=== PATIENT | male | born 1955 | race Caucasian/White ===

== ENCOUNTER 2017-01-02 23:09 | Emergency (ER) | payer MEDICARE ==
[2017-01-03 00:13] LABS: BASOPHILS 1.1 % (0-2); EOSINOPHILS 4.7 % (0-7); HEMATOCRIT 40.2 % (42.0-54.0); HEMOGLOBIN 13.3 g/dL (13.5-17.5); IMMATURE GRANULOCYTES 0.2 % (0-5); LYMPHOCYTES 33.2 % (15-50); MCHC 33.1 g/dL (31.0-37.0); MCV 93.7 fL (80.0-100.0); MEAN PLATELET VOLUME 9.7 fL (7.4-10.4); MONOCYTES 12.1 % (2-11); NEUTROPHILS 48.7 % (40-80); PLATELET COUNT 414 10x3/uL (130-400); RBC 4.29 10x6/uL (4.20-6.10); RDW 14.4 % (11.5-14.5); WBC 13.1 10x3/uL (4.8-10.8)
[2017-01-03 00:27] LABS: APPEARANCE CLEAR (CLEAR); COLOR YELLOW (YELLOW); GLUCOSE NEGATIVE (NEGATIVE); KETONE NEGATIVE (NEGATIVE); LEUKOCYTE ESTERASE NEGATIVE (NEGATIVE); NITRITE NEGATIVE (NEGATIVE); PROTEIN NEGATIVE (NEGATIVE); SPECIFIC GRAVITY 1.015 (1.005-1.020)
[2017-01-03 00:28] LABS: BILIRUBIN NEGATIVE (NEGATIVE); UROBILINOGEN NORMAL (NORMAL)
[2017-01-03 00:32] LABS: ALBUMIN 3.2 g/dL (3.4-5.0); ALKALINE PHOSPHATASE 107 U/L (46-116); ALT (SGPT) 25 U/L (10-68); BILIRUBIN - TOTAL 0.26 mg/dL (0.2-1.3); CALC OSMOLALITY 277 mosm/kg (275-300); CALCIUM 9.1 mg/dL (8.5-10.1); CARBON DIOXIDE 25.4 mmol/L (21.0-32.0); CHLORIDE - SERUM 104 mmol/L (98-107); GLUCOSE 107 mg/dL (74-106); POTASSIUM - SERUM 4.3 mmol/L (3.5-5.1); PROTEIN - SERUM 7.7 g/dL (6.4-8.2); SODIUM 138 mmol/L (136-145); UREA NITROGEN 19 mg/dL (7-18); eGFR NON AFRICAN AMERICAN 81 mL/min (90-120)
== END 2017-01-03 02:38 | disposition home or self-care (01) ==
LOC: D.ER 23:09
PROVIDERS: Nurse Practitioner Family
DX: S50.01XA Contusion of right elbow, initial encounter (principal); W01.0XXA Fall on same level from slipping, tripping and stumbling without subsequent striking against object, initial encounter; Y93.89 Activity, other specified; Y92.019 Unspecified place in single-family (private) house as the place of occurrence of the external cause; M25.521 Pain in right elbow; F17.200 Nicotine dependence, unspecified, uncomplicated

== ENCOUNTER 2017-05-14 07:40 | Inpatient (IN) | payer MEDICARE, OTHER ==
[~2017-05-14] VITALS: Ht 182.9 cm; Wt 72.0 kg
[2017-05-14 08:05] LABS: BASOPHILS 1.3 % (0-2); EOSINOPHILS 3.2 % (0-7); HEMATOCRIT 41.9 % (42.0-54.0); HEMOGLOBIN 13.9 g/dL (13.5-17.5); IMMATURE GRANULOCYTES 0.2 % (0-5); LYMPHOCYTES 34.4 % (15-50); MCH 30.5 pg (26.0-34.0); MCHC 33.2 g/dL (31.0-37.0); MCV 91.9 fL (80.0-100.0); MEAN PLATELET VOLUME 9.7 fL (7.4-10.4); MONOCYTES 11.6 % (2-11); NEUTROPHILS 49.3 % (40-80); PLATELET COUNT 492 10x3/uL (130-400); RBC 4.56 10x6/uL (4.20-6.10); RDW 14.7 % (11.5-14.5); WBC 13.2 10x3/uL (4.8-10.8)
[2017-05-14 08:18] LABS: ALBUMIN 3.4 g/dL (3.4-5.0); ALKALINE PHOSPHATASE 133 U/L (46-116); ALT (SGPT) 23 U/L (10-68); BILIRUBIN - TOTAL 0.27 mg/dL (0.2-1.3); CALC OSMOLALITY 291 mosm/kg (275-300); CALCIUM 9.6 mg/dL (8.5-10.1); CARBON DIOXIDE 26.1 mmol/L (21.0-32.0); CHLORIDE - SERUM 108 mmol/L (98-107); CREATININE - SERUM 0.9 mg/dL (0.6-1.3); POTASSIUM - SERUM 3.6 mmol/L (3.5-5.1); SODIUM 144 mmol/L (136-145); UREA NITROGEN 14 mg/dL (7-18); eGFR NON AFRICAN AMERICAN > 90 mL/min (90-120)
[2017-05-14 08:19] LABS: GLUCOSE 169 mg/dL (74-106)
[2017-05-14 08:26] LABS: CREATINE KINASE 54 UL (21-232); TROPONIN-I < 0.017 ng/mL (0.000-0.060)
[2017-05-14 08:30] LABS: APTT 23.7 SECONDS (22.8-39.4)
--- NOTE | 2017-05-14 12:40 | NUR ---
PT ARRIVED FROM ER AND IS VERY LETHARGIC AND TIRED. FAMILY AT BEDSIDE FOR HX AND ACCURATE INFORMATION. WILL DO ADMISSION WORK-UP AND CONTINUE PLAN OF CARE AND CURRENT ORDERS.
[2017-05-14] MEDS ORDERED: GLUCOPHAGE1000 MG PO (12:41)
[2017-05-14] MEDS ORDERED: GLUCOTROL 5 MG T5 MG PO (12:41)
[2017-05-14 12:42] VITALS: BP 140/78; Ht 182.9 cm; Wt 72.0 kg
[2017-05-14] MEDS ORDERED: KEPPRA500 MG PO (12:42)
[2017-05-14] MEDS ORDERED: CELEXA20 MG PO (12:42)
[2017-05-14 17:26] VITALS: BP 135/80
--- NOTE | 2017-05-14 17:29 | NUR ---
DISCONNECTED PT FROM HIS PIV SO HE CAN GO FOR MRI. WILL CTM.
--- NOTE | 2017-05-14 18:14 | NUR ---
PT BACK FROM MRI AND DENIES ANY CURRENT NEEDS. WILL CTM.
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
--- NOTE | 2017-05-14 19:28 | NUR ---
RESUMED CARE OF PT, LYING IN BED WITH EYES CLOSED RESPIRATIONS EVEN AND UNLABORED ON ROOM AIR. RIGHT HAND INFUSING NS @ 50. NO NEEDS NOTED AT THIS TIME, CALL LIGHT IN REACH. WILL CONTINUE TO MONITOR. SEE NURSE ASSESSMENT.
[2017-05-14 22:49] VITALS: BP 125/76
[2017-05-15] VITALS: BP 159/90
--- NOTE | 2017-05-15 00:14 | NUR ---
BOOKKEEPING SERVICE SALES AGENT AT BEDSIDE, CALL LIGHT IN REACH. WILL CONTINUE WITH PLAN OF CARE.
--- NOTE | 2017-05-15 01:19 | NUR ---
FAMILY IN ROOM VISITING, PT AWAKE STATES HE IS AWAKE BUT SAYS IT'S HARD FOR HIM TO STAY AWAKE
--- NOTE | 2017-05-15 05:44 | NUR ---
NO CHANGES FROM PREVIOUS ASSESSMENT, CALL LIGHT IN REACH. FAMILY AT BEDSIDE. WILL CONTINUE TO MONITOR.
[2017-05-15 06:34] LABS: BASOPHILS 1.5 % (0-2); EOSINOPHILS 5.4 % (0-7); HEMATOCRIT 39.8 % (42.0-54.0); HEMOGLOBIN 13.1 g/dL (13.5-17.5); IMMATURE GRANULOCYTES 0.4 % (0-5); LYMPHOCYTES 43.6 % (15-50); MCH 30.3 pg (26.0-34.0); MCHC 32.9 g/dL (31.0-37.0); MCV 92.1 fL (80.0-100.0); MEAN PLATELET VOLUME 9.8 fL (7.4-10.4); MONOCYTES 9.3 % (2-11); NEUTROPHILS 39.8 % (40-80); PLATELET COUNT 526 10x3/uL (130-400); RBC 4.32 10x6/uL (4.20-6.10); RDW 14.8 % (11.5-14.5); WBC 10.2 10x3/uL (4.8-10.8)
[2017-05-15 06:56] LABS: CALC OSMOLALITY 289 mosm/kg (275-300); CALCIUM 9.1 mg/dL (8.5-10.1); CARBON DIOXIDE 24.8 mmol/L (21.0-32.0); CHLORIDE - SERUM 107 mmol/L (98-107); POTASSIUM - SERUM 3.7 mmol/L (3.5-5.1); SODIUM 141 mmol/L (136-145); UREA NITROGEN 12 mg/dL (7-18); eGFR NON AFRICAN AMERICAN 81 mL/min (90-120)
[2017-05-15 07:00] LABS: GLUCOSE 258 mg/dL (74-106)
[2017-05-15] MEDS ORDERED: BAYER ASPIRIN325 MG PO (07:41)
--- NOTE | 2017-05-15 08:29 | NUR ---
INTRODUCED MYSELF TO PT PRIMARY RN FOR TODAYS SHIFT. PT A&O AND NO DEFICITS NOTED. SHIFT ASSESSMENT COMPLETED AND PT IS BEING DISCHARGED. PT WILL BEGIN TAKING A BABY ASA DAILY, TEACHING PROVIDED. PT VERBALIZED UNDERSTANDING AND IS READY TO DC. WILL BEGIN DISCHARGE PAPERS AND CTM.
--- NOTE | 2017-05-15 10:34 | NUR ---
D/C PTS R.HAND PIV WITH CATHETER TIP FULLY INTACT. FLU VACCINE ADMINISTERED ORDERED AND INFORMATION SHEET PROVIDED. DISCHARGE TEACHING PROVIDED AND PAPERS SIGNED. PT VERBALIZED UNDERSTANDING AND IS READY TO GO HOME, ASPIRIN IS THE ONLY NEW MED AND TEACHING WAS PROVIDED. CALLED FOR W/C NO FURTHER NEEDS.
--- NOTE | 2017-05-23 14:14 | EC ---
PATIENT:EMERSON CROOK DATE OF SERVICE: 05/14/17 SEX: M MEDICAL RECORD: [id number] DATE OF : 55 LOCATION:D.M2 D.213 AGE OF PATIENT: 61 ADMISSION DATE: 05/14/17 REFERRING PHYSICIAN: INTERPRETING PHYSICIAN: MARY WOOD MD ECHOCARDIOGRAM REPORT ECHO CHARGES 4 ECHO COMPLETE CLINICAL DIAGNOSIS: TIA ECHOCARDIOGRAPHIC MEASUREMENTS (adult normal given) AC root (d.<3.7cm) 3.4 cm LV Septum d (<1.2 cm> 1.3 cm Valve Excursion 2.2 cm LV Septum (systole) 1.6 cm Left Atria (s.<4.0cm> 3.5 cm LVPW d(<1.2cm) 1.4 cm RV (d.<2.3cm) 2.3 cm LVPW (sytole) 1.6 cm LV diastole(<5.6CM) 6.1 cm MV E-F(>70mm/sec) cm LV systole 4.5 cm LVOT Diameter 2.2 cm MV exc.(>10mm) cm Est.ejection fraction (50-75%) % Pericardial Effusion N DOPPLER: LVIT cm/sec A 58.0 cm/sec E 44.0 cm/sec LA cm/sec RVSP 21.0 mmHg LVOT 87.0 cm/sec AOP1/2T m/s Asc. Ao 112 cm/sec RVOT 100 cm/sec RA cm/sec PA 94.0 cm/sec AV Gradient Peak 5.0 mmHg AV Mean 2.3 mmHg AV Area 2.8 cm MV Gradient Peak 3.1 mmHg MV Mean 1.1 mmHg MV Area cm COMMENTS: Geospatial Systems Integrator: 1 PEG WEIOE Lathe Operator Contact Lens: 1 Dr. Wood TAPE# PACS DATE OF SERVICE: 05/14/2017 Echocardiogram FINDINGS: 1. Left ventricular chamber size is within normal limits. Left ventricular systolic function is normal. Overall ejection fraction estimated at 60%. 2. Left atrium, right atrium, and right ventricular chamber sizes are within normal limits. 3. Valvular structures have normal structure and motion. ECHOCARDIOGRAM REPORT [id number] EMERSON CROOK 4. Doppler interrogation reveals no significant valvular insufficiency or stenosis. Pulmonary systolic pressure is normal estimated at 21 mmHg. 5. No evidence of pericardial effusion or left ventricular thrombus. TRANSINT:[id number] Voice Confirmation ID: [id number] DOCUMENT ID: [id number] MARY WOOD MD at 1414 CC: [id number] DICTATION DATE: 05/14/17 111 ARCHITECTURAL DRAFTSMAN: 05/14/17 1201 DIS IN 05/15/17 [place] [id number] [place] [id number]
== END 2017-05-15 10:42 | disposition home or self-care (01) | DRG 69 ==
LOC: D.ER 07:40 → D.M2 11:35
PROVIDERS: Emergency Medicine; ADMIT Family Medicine
DX: G45.9 Transient cerebral ischemic attack, unspecified (principal); R40.2363 Coma scale, best motor response, obeys commands, at hospital admission; R40.2133 Coma scale, eyes open, to sound, at hospital admission; R40.2253 Coma scale, best verbal response, oriented, at hospital admission; G40.909 Epilepsy, unspecified, not intractable, without status epilepticus; F41.8 Other specified anxiety disorders; J31.0 Chronic rhinitis; K21.9 Gastro-esophageal reflux disease without esophagitis; Z86.73 Personal history of transient ischemic attack (TIA), and cerebral infarction without residual deficits; Z72.0 Tobacco use

== ENCOUNTER → 2017-10-06 09:03 | Outpatient (CLI) | payer MEDICARE, OTHER ==
[2017-05-14 12:42] VITALS: BMI 21.5
[~2017-10-06 09:03] MED LIST: BAYER ASPIRIN325 MG PO; CELEXA20 MG PO; GLUCOPHAGE1000 MG PO; GLUCOTROL 5 MG T5 MG PO; KEPPRA500 MG PO
[2017-10-06 10:10] LABS: BASOPHILS 0.7 % (0-2); EOSINOPHILS 3.1 % (0-7); HEMOGLOBIN 14.5 g/dL (13.5-17.5); IMMATURE GRANULOCYTES 0.3 % (0-5); MCH 29.7 pg (26.0-34.0); MEAN PLATELET VOLUME 9.7 fL (7.4-10.4); MONOCYTES 7.1 % (2-11); NEUTROPHILS 60.8 % (40-80); PLATELET COUNT 596 10x3/uL (130-400); RBC 4.89 10x6/uL (4.20-6.10); RDW 15.5 % (11.5-14.5); WBC 15.4 10x3/uL (4.8-10.8)
[2017-10-06 10:23] LABS: INR 1.02 (0.85-1.17)
[2017-10-06 10:33] LABS: ALBUMIN 3.2 g/dL (3.4-5.0); BILIRUBIN - DIRECT 0.05 mg/dL (0.00-0.30); BILIRUBIN - INDIRECT 0.15 mg/dL (0.00-1.00); BILIRUBIN - TOTAL 0.2 mg/dL (0.2-1.3)
[2017-10-07 10:18] LABS: ALPHA FETOPROTEIN -(TUMOR MRK) 1.7 ng/mL (0.0-8.3)
[2017-10-08 14:21] LABS: HCVGENO - HEP C QUANT HCV Not Detected IU/mL (())
== END | disposition home or self-care (01) ==
LOC: D.US 09:00
PROVIDERS: Internal Medicine Gastroenterology
DX: B19.20 Unspecified viral hepatitis C without hepatic coma (principal); B19.10 Unspecified viral hepatitis B without hepatic coma; K74.60 Unspecified cirrhosis of liver

== ENCOUNTER 2018-05-05 02:23 | Emergency (ER) | payer MEDICARE, OTHER ==
[~2018-05-05] VITALS: Ht 182.9 cm; Wt 75.0 kg
[2018-05-05 02:36] VITALS: Ht 182.9 cm; Wt 75.0 kg
[2018-05-05] MEDS ORDERED: TORADOL10 MG PO (03:14)
[2018-05-05] MEDS ORDERED: CLEOCIN HCL300 MG PO (03:14)
[2018-05-05 03:22] VITALS: BP 138/85
== END 2018-05-05 03:24 | disposition home or self-care (01) ==
LOC: D.ER 02:23
DX: E11.621 Type 2 diabetes mellitus with foot ulcer (principal); L97.529 Non-pressure chronic ulcer of other part of left foot with unspecified severity; Z86.73 Personal history of transient ischemic attack (TIA), and cerebral infarction without residual deficits; F17.200 Nicotine dependence, unspecified, uncomplicated

== ENCOUNTER 2019-05-28 12:04 | Emergency (ER) | payer MEDICARE, OTHER ==
[~2019-05-28] VITALS: Ht 182.9 cm; Wt 70.5 kg
[~2019-05-28 12:04] MED LIST changes: +CLEOCIN HCL300 MG PO; +TORADOL10 MG PO
[2019-05-28 12:08] VITALS: Ht 182.9 cm; Wt 70.5 kg
[2019-05-28 14:33] LABS: CREATININE - SERUM 0.8 mg/dL (0.6-1.3); GLUCOSE 118 mg/dL (74-106); UREA NITROGEN 12 mg/dL (7-18); eGFR NON AFRICAN AMERICAN > 90 mL/min (90-120)
[2019-05-28 14:34] LABS: CALC OSMOLALITY 283 mosm/kg (275-300); CALCIUM 9.2 mg/dL (8.5-10.1); CARBON DIOXIDE 26.4 mmol/L (21.0-32.0); CHLORIDE - SERUM 107 mmol/L (98-107); POTASSIUM - SERUM 3.8 mmol/L (3.5-5.1); SODIUM 142 mmol/L (136-145)
[2019-05-28 14:38] LABS: ALKALINE PHOSPHATASE 137 U/L (46-116); ALT (SGPT) 23 U/L (10-68)
[2019-05-28 14:39] LABS: ALBUMIN 3.9 g/dL (3.4-5.0); BILIRUBIN - TOTAL 0.55 mg/dL (0.2-1.3); PROTEIN - SERUM 7.7 g/dL (6.4-8.2)
[2019-05-28 14:41] LABS: APTT 25.6 SECONDS (22.8-39.4); INR 1.11 (0.85-1.17); PROTIME 13.8 SECONDS (11.6-15.0)
[2019-05-28 14:43] LABS: BASOPHILS 0.3 % (0-2); EOSINOPHILS 0.2 % (0-7); HEMATOCRIT 42.6 % (42.0-54.0); HEMOGLOBIN 13.7 g/dL (13.5-17.5); IMMATURE GRANULOCYTES 0.4 % (0-5); LYMPHOCYTES 15.3 % (15-50); MCHC 32.2 g/dL (31.0-37.0); MCV 96.4 fL (80.0-100.0); MEAN PLATELET VOLUME 9.5 fL (7.4-10.4); MONOCYTES 6.8 % (2-11); NEUTROPHILS 77 % (40-80); PLATELET COUNT 492 10x3/uL (130-400); RBC 4.42 10x6/uL (4.20-6.10); RDW 14.2 % (11.5-14.5); WBC 17.7 10x3/uL (4.8-10.8)
[2019-05-28] MEDS ORDERED: CLEOCIN HCL300 MG PO (15:12)
[2019-05-28] MEDS ORDERED: KEFLEX500 MG PO (15:12)
[2019-05-28] MEDS ORDERED: ULTRAM50 MG PO (15:31)
[2019-05-28 15:37] LABS: APPEARANCE CLEAR (CLEAR); BILIRUBIN NEGATIVE (NEGATIVE); COLOR YELLOW (YELLOW); GLUCOSE 1000 mg/dL (NEGATIVE); KETONE MODERATE mg/dL (NEGATIVE); NITRITE NEGATIVE (NEGATIVE); PROTEIN TRACE mg/dL (NEGATIVE); UROBILINOGEN NORMAL (NORMAL)
--- NOTE | 2019-05-28 16:01 | NUR ---
PT DENIES SUICIDAL IDEATION. PT ASSESSED NO RISK FOR SUICIDE. PT DOES HAVE TROUBLE WITH ANXIETY AND IS ON CELEXA FOR DEPRESSION. RESOURCES GIVEN AND REVIEWED WITH PT.
[2019-05-28 17:07] VITALS: BP 166/83
== END 2019-05-28 16:40 | disposition home or self-care (01) ==
LOC: D.ER 12:04
PROVIDERS: Family Medicine
DX: S01.81XA Laceration without foreign body of other part of head, initial encounter (principal); W10.8XXA Fall (on) (from) other stairs and steps, initial encounter; Y93.9 Activity, unspecified; Y92.9 Unspecified place or not applicable; S51.812A Laceration without foreign body of left forearm, initial encounter; S01.511A Laceration without foreign body of lip, initial encounter; E11.9 Type 2 diabetes mellitus without complications; Z79.84 Long term (current) use of oral hypoglycemic drugs; Z86.73 Personal history of transient ischemic attack (TIA), and cerebral infarction without residual deficits

== ENCOUNTER 2019-06-14 08:43 | Emergency (ER) | payer MEDICARE, OTHER ==
[~2019-06-14] VITALS: Ht 182.9 cm; Wt 70.3 kg
[~2019-06-14 08:43] MED LIST changes: +KEFLEX500 MG PO; +ULTRAM50 MG PO
[2019-06-14 08:46] VITALS: BP 162/100; Ht 182.9 cm; Wt 70.3 kg
== END 2019-06-14 10:22 | disposition home or self-care (01) ==
LOC: D.ER 08:43
DX: Z48.02 Encounter for removal of sutures (principal); Z86.73 Personal history of transient ischemic attack (TIA), and cerebral infarction without residual deficits; E11.9 Type 2 diabetes mellitus without complications; Z79.84 Long term (current) use of oral hypoglycemic drugs

== ENCOUNTER → 2019-07-19 08:57 | Outpatient (CLI) | payer MEDICARE, OTHER ==
[2019-06-14 08:46] VITALS: BMI 21.0
[2019-07-19 11:06] LABS: ALBUMIN 3.8 g/dL (3.4-5.0); BILIRUBIN - DIRECT 0.05 mg/dL (0.00-0.30); BILIRUBIN - INDIRECT 0.2 mg/dL (0.00-1.00); BILIRUBIN - TOTAL 0.25 mg/dL (0.2-1.3); PROTEIN - SERUM 8.1 g/dL (6.4-8.2)
[2019-07-20 14:09] LABS: ALPHA FETOPROTEIN -(TUMOR MRK) 1.8 ng/mL (0.0-8.3)
== END | disposition home or self-care (01) ==
LOC: D.US 08:57
PROVIDERS: ATTEND Internal Medicine Gastroenterology
DX: B18.2 Chronic viral hepatitis C (principal)